=== PATIENT | female | born 1935 | race Caucasian/White ===

== ENCOUNTER 2016-10-02 13:14 | Emergency (ER) | payer MEDICAID, MEDICARE ==
[~2016-10-02] VITALS: Ht 152.4 cm; Wt 53.0 kg
[2016-10-02] MEDS ORDERED: KETOROLAC 30MG/ML VIAL IV STA (13:31)
[2016-10-02] MEDS ORDERED: ONDANSETRON HCL 4MG/2ML VIAL IV STA (13:31)
[2016-10-02] MEDS ORDERED: SODIUM CHLORIDE 0.9% 500 ML IV ONE (13:31)
[2016-10-02 14:12] LABS: BASOPHILS % 0.5 % (0.0-2.0); EOSINOPHILS % 0.1 % (0.0-5.0); HEMATOCRIT. 36.8 % (36.0-48.0); HEMOGLOBIN. 12.5 g/dL (12.0-16.0); LYMPHOCYTES % 11.2 % (20.0-50.0); MEAN CORPUSCULAR HEMOGLOBIN 30.1 pg (28.0-32.0); MEAN CORPUSCULAR VOLUME 88.5 fL (81.0-99.0); MEAN PLATELET VOLUME 9.5 fl (7.4-10.4); NEUTROPHILS % 84.2 % (40.0-76.0); PLATELET 178 x1000/uL (130-400); RED BLOOD CELL COUNT 4.16 mill/uL (4.2-5.4); RED CELL DISTRIBUTION WIDTH 13.6 % (11.6-14.6)
[2016-10-02 14:20] LABS: PROTHROMBIN TIME 10.1 sec
[2016-10-02 14:25] LABS: CARBON DIOXIDE 26 mEq/L (21-32); CHLORIDE 106 mEq/L (98-107)
[2016-10-02 14:30] LABS: TROPONIN I < 0.02 ng/mL (0.00-0.04)
[2016-10-02 16:21] LABS: GLUCOSE URINE NEGATIVE (NEGATIVE); KETONES URINE NEGATIVE (NEGATIVE); LEUKOCYTE ESTERASE URINE TRACE (NEGATIVE); NITRITE URINE NEGATIVE (NEGATIVE); OCCULT BLOOD URINE NEGATIVE (NEGATIVE); PH URINE 7.5 (4.5-8.0); PROTEIN URINE NEGATIVE (NEGATIVE); SPECIFIC GRAVITY URINE 1.014 (1.005-1.030)
[2016-10-02 16:24] LABS: CLARITY URINE HAZY (CLEAR); COLOR URINE YELLOW (YELLOW)
[2016-10-02] MEDS ORDERED: MORPHINE SULFATE 4 MG/ML CPJ (NOT FOR IM USE) IV ONE (17:00)
[2016-10-02 18:31] VITALS: BP 147/75
== END 2016-10-02 19:33 | disposition home or self-care (01) ==
LOC: ER 14:03
DX: R10.13 Epigastric pain (principal); R11.2 Nausea with vomiting, unspecified; I10 Essential (primary) hypertension; Z90.49 Acquired absence of other specified parts of digestive tract
CPT/HCPCS: 36415; 74176; 76705; 80053; 81001; 83690; 84484; 85025; 85610; 93005; 96361; 96374; 96375; 99285; J1885; J2270; J2405; J7030

== ENCOUNTER 2019-03-25 18:15 | Inpatient (IN) | payer MEDICARE, MEDICAID ==
[~2019-03-25] VITALS: Ht 144.8 cm; Wt 56.7 kg
[~2019-03-25 18:15] MED LIST: ALBU6.7H9 INH; ASPI-1393 MT; FURO20TA4 MT; LEVO25TA7 MT; METO25TA6 MT; OLMESARTAN PO; OMEP40CA34 PO; PRED10TA MT
[2019-03-25] MEDS ORDERED: SODIUM CHLORIDE 0.9% 1000ML BAG (SEPSIS BOLUS) IV ONE (22:00)
[2019-03-25 22:50] LABS: BASOPHILS % 0.4 % (0.0-2.0); EOSINOPHILS % 0.6 % (0.0-5.0); HEMATOCRIT. 40.4 % (36.0-48.0); HEMOGLOBIN. 14.2 g/dL (12.0-16.0); LYMPHOCYTES % 30.2 % (20.0-50.0); MEAN CORPUSCULAR HEMOGLOBIN 30.2 pg (28.0-32.0); MEAN CORPUSCULAR VOLUME 85.8 fL (81.0-99.0); MONOCYTES % 12.1 % (2.0-8.0); NEUTROPHILS % 56.7 % (40.0-76.0); PLATELET 221 x1000/uL (130-400); RED BLOOD CELL COUNT 4.71 mill/uL (4.2-5.4); RED CELL DISTRIBUTION WIDTH 13.2 % (11.6-14.6)
[2019-03-25 22:54] LABS: CHLORIDE 82 mEq/L (98-107)
[2019-03-25] MEDS ORDERED: ONDANSETRON HCL 4MG/2ML INJ IV ONE (23:15)
[2019-03-25] MEDS ORDERED: CEFTRIAXONE 1 G PREMIX 50 ML IV ONE (23:15)
[2019-03-25] MEDS ORDERED: POTASSIUM CHLORIDE INJ 40 MEQ in DEXT 5% WATER 250 ML IV ONE (23:15)
[2019-03-25] MEDS ORDERED: POTASSIUM CHLORIDE 20MEQ TABLET SR PO ONE (23:15)
[2019-03-26] MEDS ORDERED: MORPHINE SULFATE 2 MG/ML CPJ (NOT FOR IM USE) IV PRN
[2019-03-26] MEDS ORDERED: IPRATROPIUM/ALBUTEROL 0.5-3(2.5)MG/3ML NEB NEB PRN
[2019-03-26] MEDS ORDERED: CLONIDINE 0.1MG TABLET PO PRN
[2019-03-26] MEDS ORDERED: ONDANSETRON HCL 4MG/2ML INJ IV PRN
[2019-03-26] MEDS ORDERED: HYDROCODONE/ACETAMINOPHEN 5/325MG TABLET PO PRN
[2019-03-26] MEDS ORDERED: CEFTRIAXONE 1 G PREMIX 50 ML IV SCH (01:00)
[2019-03-26 01:01] LABS: CLARITY URINE CLEAR (CLEAR); COLOR URINE YELLOW (YELLOW); KETONES URINE NEGATIVE (NEGATIVE); LEUKOCYTE ESTERASE URINE TRACE (NEGATIVE); NITRITE URINE NEGATIVE (NEGATIVE); OCCULT BLOOD URINE NEGATIVE (NEGATIVE); PROTEIN URINE NEGATIVE (NEGATIVE); SPECIFIC GRAVITY URINE 1.006 (1.005-1.030); UROBILINOGEN URINE 0.2 E.U./dL (0.2-1.0)
[2019-03-26] MEDS: POTASSIUM CHLORIDE 20MEQ TABLET SR PO SCH ×4 (01:04→16:57)
[2019-03-26 09:30] VITALS: BP 126/54
[2019-03-26 09:46] VITALS: BP 126/54
[2019-03-26] MEDS ORDERED: ISOS20TA8 PO (10:20)
[2019-03-26] MEDS ORDERED: AMLO-375 PO (10:23)
[2019-03-26] MEDS ORDERED: METO5TAB69 PO (10:25)
[2019-03-26] MEDS: FUROSEMIDE 40MG/4ML VIAL IV SCH ×2 (10:45→16:56)
[2019-03-26] MEDS: ENOXAPARIN 30MG/0.3ML SYR SUBCUT SCH (10:46)
[2019-03-26 12:00] VITALS: BP 106/54
[2019-03-26] MEDS: LEVOTHYROXINE SODIUM 50MCG TABLET PO SCH (14:38)
[2019-03-26] MEDS: PREDNISONE 20MG TABLET PO SCH (14:38)
[2019-03-26 16:00] VITALS: BP 109/62
[2019-03-26 16:48] LABS: BASOPHILS % 0.6 % (0.0-2.0); EOSINOPHILS % 1.2 % (0.0-5.0); HEMATOCRIT. 39.2 % (36.0-48.0); HEMOGLOBIN. 13.5 g/dL (12.0-16.0); LYMPHOCYTES % 26.9 % (20.0-50.0); MEAN CORPUSCULAR HEMOGLOBIN 29.7 pg (28.0-32.0); MEAN CORPUSCULAR VOLUME 86.4 fL (81.0-99.0); MEAN PLATELET VOLUME 9.9 fl (7.4-10.4); MONOCYTES % 15.5 % (2.0-8.0); NEUTROPHILS % 55.8 % (40.0-76.0); PLATELET 225 x1000/uL (130-400); RED BLOOD CELL COUNT 4.53 mill/uL (4.2-5.4); RED CELL DISTRIBUTION WIDTH 13.2 % (11.6-14.6)
[2019-03-26 20:00] VITALS: BP 114/70
[2019-03-27] VITALS: BP 120/69
[2019-03-27] MEDS: CEFTRIAXONE 1 G PREMIX 50 ML IV SCH (01:23)
[2019-03-27 04:00] VITALS: BP 116/73
[2019-03-27 06:34] LABS: BASOPHILS % 0.2 % (0.0-2.0); HEMATOCRIT. 40.3 % (36.0-48.0); HEMOGLOBIN. 14.1 g/dL (12.0-16.0); LYMPHOCYTES % 30.8 % (20.0-50.0); MEAN CORPUSCULAR VOLUME 85.8 fL (81.0-99.0); MEAN PLATELET VOLUME 9.8 fl (7.4-10.4); MONOCYTES % 7.3 % (2.0-8.0); NEUTROPHILS % 61.7 % (40.0-76.0); PLATELET 220 x1000/uL (130-400); RED CELL DISTRIBUTION WIDTH 13.3 % (11.6-14.6)
[2019-03-27] MEDS: LEVOTHYROXINE SODIUM 50MCG TABLET PO SCH (06:38)
[2019-03-27 08:00] VITALS: BP 130/65
[2019-03-27] MEDS: ENOXAPARIN 30MG/0.3ML SYR SUBCUT SCH (09:05)
[2019-03-27] MEDS: POTASSIUM CHLORIDE 20MEQ TABLET SR PO SCH ×3 (09:05→17:34)
[2019-03-27] MEDS: PREDNISONE 20MG TABLET PO SCH (09:05)
[2019-03-27 12:00] VITALS: BP 124/64
[2019-03-27 16:00] VITALS: BP 114/69
[2019-03-27 20:00] VITALS: BP 126/76
[2019-03-28] VITALS: BP 123/81
[2019-03-28] MEDS: CEFTRIAXONE 1 G PREMIX 50 ML IV SCH (01:04)
[2019-03-28 04:00] VITALS: BP 116/68
[2019-03-28] MEDS: LEVOTHYROXINE SODIUM 50MCG TABLET PO SCH (06:58)
[2019-03-28 07:47] LABS: BASOPHILS % 0.4 % (0.0-2.0); EOSINOPHILS % 0.2 % (0.0-5.0); HEMATOCRIT. 38.1 % (36.0-48.0); HEMOGLOBIN. 12.9 g/dL (12.0-16.0); LYMPHOCYTES % 19.6 % (20.0-50.0); MEAN CORPUSCULAR HEMOGLOBIN 29.5 pg (28.0-32.0); MEAN CORPUSCULAR VOLUME 87.1 fL (81.0-99.0); MEAN PLATELET VOLUME 9.9 fl (7.4-10.4); MONOCYTES % 8.5 % (2.0-8.0); NEUTROPHILS % 71.3 % (40.0-76.0); PLATELET 233 x1000/uL (130-400); RED BLOOD CELL COUNT 4.37 mill/uL (4.2-5.4); RED CELL DISTRIBUTION WIDTH 13.8 % (11.6-14.6)
[2019-03-28 08:00] VITALS: BP 135/72
[2019-03-28] MEDS: ENOXAPARIN 30MG/0.3ML SYR SUBCUT SCH (08:51)
[2019-03-28] MEDS: POTASSIUM CHLORIDE 20MEQ TABLET SR PO SCH ×2 (08:51→13:00)
[2019-03-28] MEDS: PREDNISONE 20MG TABLET PO SCH (08:51)
[2019-03-28 12:00] VITALS: BP 130/64
[2019-03-28] MEDS ORDERED: LEVO500T2 MT (13:05)
[2019-03-28 14:14] VITALS: BP 130/64
== END 2019-03-28 17:48 | disposition home or self-care (01) | DRG 202 ==
LOC: ER 18:15 → ENRESERV 03-26 08:21 → 5WST 03-26 09:21
PROVIDERS: ADMIT Internal Medicine Nephrology; ATTEND Internal Medicine Nephrology
DX: J20.9 Acute bronchitis, unspecified (principal); N17.9 Acute kidney failure, unspecified; E87.1 Hypo-osmolality and hyponatremia; J44.0 Chronic obstructive pulmonary disease with (acute) lower respiratory infection; E87.6 Hypokalemia; E03.9 Hypothyroidism, unspecified; E11.22 Type 2 diabetes mellitus with diabetic chronic kidney disease; I25.10 Atherosclerotic heart disease of native coronary artery without angina pectoris; I50.9 Heart failure, unspecified; N18.9 Chronic kidney disease, unspecified; T50.2X5A Adverse effect of carbonic-anhydrase inhibitors, benzothiadiazides and other diuretics, initial encounter; Y92.89 Other specified places as the place of occurrence of the external cause; Z79.899 Other long term (current) drug therapy; Z79.82 Long term (current) use of aspirin
CPT/HCPCS: 36415; 71045; 80048; 81003; 83605; 83735; 93005; 93306; 99291; J0696; J1650; J1940; J2405; J3480; J7030; J7040; J7060; J7512

== ENCOUNTER 2019-06-06 18:50 | Emergency (ER) | payer MEDICARE, MEDICAID ==
[~2019-06-06] VITALS: Ht 149.9 cm; Wt 59.0 kg
[~2019-06-06 18:50] MED LIST changes: +AMLO-375 PO; -ASPI-1393 MT; +ASPI-1497 MT; +ISOS20TA8 PO; +LEVO500T2 MT; +OMEP40CA12 PO; -OMEP40CA34 PO; -PRED10TA MT
[2019-06-06 21:43] LABS: CLARITY URINE CLEAR (CLEAR); COLOR URINE YELLOW (YELLOW); KETONES URINE NEGATIVE (NEGATIVE); LEUKOCYTE ESTERASE URINE NEGATIVE (NEGATIVE); NITRITE URINE NEGATIVE (NEGATIVE); OCCULT BLOOD URINE NEGATIVE (NEGATIVE); PROTEIN URINE NEGATIVE (NEGATIVE); SPECIFIC GRAVITY URINE 1.006 (1.005-1.030); UROBILINOGEN URINE 0.2 E.U./dL (0.2-1.0)
[2019-06-06] MEDS ORDERED: ONDANSETRON HCL 4MG/2ML INJ IV STA (21:58)
[2019-06-06] MEDS ORDERED: KETOROLAC 30MG/ML VIAL IV STA (21:58)
[2019-06-06 22:49] LABS: BASOPHILS % 0.6 % (0.0-2.0); EOSINOPHILS % 1.5 % (0.0-5.0); HEMATOCRIT. 36.7 % (36.0-48.0); HEMOGLOBIN. 12.9 g/dL (12.0-16.0); LYMPHOCYTES % 30.6 % (20.0-50.0); MEAN CORPUSCULAR HEMOGLOBIN 30.4 pg (28.0-32.0); MEAN CORPUSCULAR VOLUME 86.5 fL (81.0-99.0); MEAN PLATELET VOLUME 9.4 fl (7.4-10.4); MONOCYTES % 10.1 % (2.0-8.0); NEUTROPHILS % 57.2 % (40.0-76.0); PLATELET 213 x1000/uL (130-400); RED BLOOD CELL COUNT 4.24 mill/uL (4.2-5.4); RED CELL DISTRIBUTION WIDTH 13.6 % (11.6-14.6)
[2019-06-06 22:50] LABS: CHLORIDE 94 mEq/L (98-107)
[2019-06-06 22:51] LABS: INR 0.9; PROTHROMBIN TIME 10.3 sec (9.6-11.0)
[2019-06-07] MEDS ORDERED: SODIUM CHLORIDE 0.9% 250 ML IV ONE (00:15)
[2019-06-07] MEDS ORDERED: SODIUM CHLORIDE 0.9% 1,000 ML IV ONE (02:15)
[2019-06-07 02:35] VITALS: BP 97/54
== END 2019-06-07 02:58 | disposition home or self-care (01) ==
LOC: ER 18:50
DX: R10.10 Upper abdominal pain, unspecified (principal); J44.9 Chronic obstructive pulmonary disease, unspecified; I10 Essential (primary) hypertension; R11.2 Nausea with vomiting, unspecified; Z79.82 Long term (current) use of aspirin; Z79.899 Other long term (current) drug therapy
CPT/HCPCS: 36415; 74176; 80053; 81003; 83690; 83880; 84484; 85025; 85610; 93005; 96361; 96374; 96375; 99285; J1885; J2405; J7030; J7050

== ENCOUNTER 2019-06-12 10:46 | Inpatient (IN) | payer MEDICARE, MEDICAID ==
[~2019-06-12] VITALS: Ht 144.8 cm; Wt 63.2 kg
[2019-06-12] MEDS ORDERED: ONDANSETRON HCL 4MG/2ML INJ IV STA (11:45)
[2019-06-12] MEDS ORDERED: SODIUM CHLORIDE 0.9% 1,000 ML IV ONE (11:45)
[2019-06-12 12:26] LABS: BASOPHILS % 0.6 % (0.0-2.0); EOSINOPHILS % 0.2 % (0.0-5.0); HEMATOCRIT. 38.5 % (36.0-48.0); HEMOGLOBIN. 13.4 g/dL (12.0-16.0); LYMPHOCYTES % 13.7 % (20.0-50.0); MEAN CORPUSCULAR HEMOGLOBIN 29.9 pg (28.0-32.0); MEAN CORPUSCULAR VOLUME 85.7 fL (81.0-99.0); MEAN PLATELET VOLUME 9.3 fl (7.4-10.4); MONOCYTES % 9.9 % (2.0-8.0); NEUTROPHILS % 75.6 % (40.0-76.0); PLATELET 253 x1000/uL (130-400); RED BLOOD CELL COUNT 4.49 mill/uL (4.2-5.4); RED CELL DISTRIBUTION WIDTH 13.3 % (11.6-14.6)
[2019-06-12 12:33] LABS: INR 1.1; PROTHROMBIN TIME 11.7 sec (9.6-11.0)
[2019-06-12 12:35] LABS: CHLORIDE 86 mEq/L (98-107)
[2019-06-12] MEDS: ONDANSETRON HCL 4MG/2ML INJ IV PRN (20:55)
[2019-06-12] MEDS ORDERED: MORPHINE SULFATE 2 MG/ML CPJ (NOT FOR IM USE) IV PRN ×2 (21:00→23:00)
[2019-06-12] MEDS ORDERED: HYDROCODONE/ACETAMINOPHEN 5/325MG TABLET PO PRN (23:00)
[2019-06-12] MEDS ORDERED: ONDANSETRON HCL 4MG/2ML INJ IV PRN (23:00)
[2019-06-12] MEDS ORDERED: IPRATROPIUM/ALBUTEROL 0.5-3(2.5)MG/3ML NEB NEB PRN (23:00)
[2019-06-12] MEDS ORDERED: CLONIDINE 0.1MG TABLET PO PRN (23:00)
[2019-06-12] MEDS ORDERED: DIPHENHYDRAMINE 50MG/ML VIAL IV PRN (23:00)
[2019-06-12 23:17] LABS: CLARITY URINE CLOUDY (CLEAR); COLOR URINE YELLOW (YELLOW); KETONES URINE TRACE (NEGATIVE); LEUKOCYTE ESTERASE URINE 3+ (NEGATIVE); NITRITE URINE NEGATIVE (NEGATIVE); OCCULT BLOOD URINE NEGATIVE (NEGATIVE); PH URINE 8.5 (4.5-8.0); PROTEIN URINE 1+ (NEGATIVE); SPECIFIC GRAVITY URINE 1.014 (1.005-1.030)
[2019-06-13] MEDS: SODIUM CHLORIDE 0.9% 1,000 ML IV SCH ×2 (00:15→13:54)
[2019-06-13 05:52] LABS: BASOPHILS % 0.4 % (0.0-2.0); EOSINOPHILS % 0.1 % (0.0-5.0); HEMATOCRIT. 35.1 % (36.0-48.0); HEMOGLOBIN. 12.1 g/dL (12.0-16.0); LYMPHOCYTES % 10.9 % (20.0-50.0); MEAN CORPUSCULAR HEMOGLOBIN 29.7 pg (28.0-32.0); MEAN CORPUSCULAR VOLUME 86.1 fL (81.0-99.0); MONOCYTES % 7.4 % (2.0-8.0); NEUTROPHILS % 81.2 % (40.0-76.0); PLATELET 222 x1000/uL (130-400); RED BLOOD CELL COUNT 4.08 mill/uL (4.2-5.4); RED CELL DISTRIBUTION WIDTH 13.1 % (11.6-14.6)
[2019-06-13] MEDS ORDERED: ASPIRIN 81MG EC TABLET PO SCH (09:00)
[2019-06-13] MEDS ORDERED: ISOSORBIDE DINITRATE 20MG TABLET PO SCH (09:00)
[2019-06-13] MEDS ORDERED: CEFTRIAXONE 1 G PREMIX 50 ML IV SCH (09:30)
[2019-06-13] MEDS: POTASSIUM CHLORIDE 20MEQ TABLET SR PO SCH ×2 (09:38→17:48)
[2019-06-13 10:30] VITALS: BP 130/59
[2019-06-13 10:35] VITALS: BP 130/59
[2019-06-13] MEDS ORDERED: POTASSIUM CHLORIDE INJ 40 MEQ in DEXT 5% WATER 250 ML IV ONE (11:00)
[2019-06-13] MEDS: LEVOTHYROXINE SODIUM 25MCG TABLET PO SCH (11:03)
[2019-06-13] MEDS: METOPROLOL TARTRATE 25MG TABLET PO SCH ×2 (11:04→17:48)
[2019-06-13] MEDS: ONDANSETRON HCL 4MG/2ML INJ IV PRN (11:04)
[2019-06-13] MEDS: ENOXAPARIN 40MG/0.4ML SYR SUBCUT SCH (11:05)
[2019-06-13] MEDS ORDERED: ROSU40TA PO (11:29)
[2019-06-13 12:00] VITALS: BP 131/78
[2019-06-13] MEDS: ALBUTEROL 6.7GM HFA INHALER INH SCH ×2 (14:10→21:44)
[2019-06-13 16:00] VITALS: BP 126/72
[2019-06-13] MEDS: GUAIFENESIN/CODEINE 200-20MG/10ML UDC PO PRN (16:24)
[2019-06-13] MEDS: CEFTRIAXONE 1 G PREMIX 50 ML IV SCH (17:50)
[2019-06-13 20:00] VITALS: BP 105/57
[2019-06-14] VITALS: BP 108/58
[2019-06-14] MEDS: GUAIFENESIN/CODEINE 200-20MG/10ML UDC PO PRN ×2 (00:08→21:36)
[2019-06-14] MEDS: SODIUM CHLORIDE 0.9% 1,000 ML IV SCH (02:09)
[2019-06-14 04:00] VITALS: BP 106/58
[2019-06-14] MEDS: LEVOTHYROXINE SODIUM 25MCG TABLET PO SCH (06:45)
[2019-06-14 07:05] LABS: BASOPHILS % 0.3 % (0.0-2.0); HEMATOCRIT. 33.5 % (36.0-48.0); HEMOGLOBIN. 11.6 g/dL (12.0-16.0); LYMPHOCYTES % 15.4 % (20.0-50.0); MEAN CORPUSCULAR HEMOGLOBIN 29.7 pg (28.0-32.0); MEAN CORPUSCULAR VOLUME 85.7 fL (81.0-99.0); MEAN PLATELET VOLUME 9.5 fl (7.4-10.4); MONOCYTES % 10.9 % (2.0-8.0); NEUTROPHILS % 72.4 % (40.0-76.0); PLATELET 206 x1000/uL (130-400); RED BLOOD CELL COUNT 3.91 mill/uL (4.2-5.4); RED CELL DISTRIBUTION WIDTH 13.3 % (11.6-14.6)
[2019-06-14 08:00] VITALS: BP 114/56
[2019-06-14] MEDS: POTASSIUM CHLORIDE 20MEQ TABLET SR PO SCH ×3 (08:29→16:38)
[2019-06-14] MEDS: METOPROLOL TARTRATE 25MG TABLET PO SCH ×3 (08:30→16:38)
[2019-06-14] MEDS: ENOXAPARIN 40MG/0.4ML SYR SUBCUT SCH (08:30)
[2019-06-14] MEDS ORDERED: EZ-HD SUSPENSION(BARIUM SULFATE 340GM) PO ONE (09:47)
[2019-06-14] MEDS ORDERED: BARIUM SULFATE 176 GM SUSP.RECON ONE (09:47)
[2019-06-14 12:00] VITALS: BP 118/66
[2019-06-14] MEDS ORDERED: BISACODYL 10MG SUPP PR NR (12:00)
[2019-06-14 16:00] VITALS: BP 119/65
[2019-06-14] MEDS: CEFTRIAXONE 1 G PREMIX 50 ML IV SCH (16:38)
[2019-06-14] MEDS: LACTULOSE 20G/30ML UDC PO SCH ×2 (18:06→21:36)
[2019-06-14 18:38] LABS: PARTIAL THROMBOPLASTIN TIME 31.2 sec (23.4-31.0); PROTHROMBIN TIME 10.9 sec (9.6-11.0)
[2019-06-14 20:00] VITALS: BP 110/67
[2019-06-14] MEDS: ALBUTEROL 6.7GM HFA INHALER INH SCH (21:36)
[2019-06-14] MEDS: ATORVASTATIN CALCIUM 20MG TABLET PO SCH (21:36)
[2019-06-14] MEDS ORDERED: LACTULOSE 20G/30ML UDC PO SCH (22:00)
[2019-06-15] VITALS (38 sets, daily range): BP systolic 65–149; BP diastolic 32–79
[2019-06-15] MEDS: LACTULOSE 20G/30ML UDC PO SCH ×3 (05:57→21:50)
[2019-06-15] MEDS: LEVOTHYROXINE SODIUM 25MCG TABLET PO SCH (06:20)
[2019-06-15 06:27] LABS: BASOPHILS % 0.4 % (0.0-2.0); EOSINOPHILS % 3.1 % (0.0-5.0); HEMATOCRIT. 34.3 % (36.0-48.0); HEMOGLOBIN. 11.9 g/dL (12.0-16.0); LYMPHOCYTES % 24.6 % (20.0-50.0); MEAN CORPUSCULAR HEMOGLOBIN 29.9 pg (28.0-32.0); MEAN CORPUSCULAR VOLUME 86.3 fL (81.0-99.0); MEAN PLATELET VOLUME 9.3 fl (7.4-10.4); MONOCYTES % 14.2 % (2.0-8.0); NEUTROPHILS % 57.7 % (40.0-76.0); PLATELET 230 x1000/uL (130-400); RED BLOOD CELL COUNT 3.98 mill/uL (4.2-5.4); RED CELL DISTRIBUTION WIDTH 13.3 % (11.6-14.6)
[2019-06-15] MEDS: METOPROLOL TARTRATE 25MG TABLET PO SCH (08:01)
[2019-06-15] MEDS: POTASSIUM CHLORIDE 20MEQ TABLET SR PO SCH (08:01)
[2019-06-15] MEDS ORDERED: FENTANYL CITRATE/PF 50MCG/ML 2ML VIAL ONE (11:28)
[2019-06-15] MEDS ORDERED: MIDAZOLAM HCL 5 MG/5 ML VIAL ONE (11:28)
[2019-06-15] MEDS ORDERED: SIMETHICONE 40 MG/0.6 ML 30ML ONE (11:28)
[2019-06-15] MEDS ORDERED: MIDAZOLAM HCL 2 MG/2 ML VIAL IV PRN (11:32)
[2019-06-15] MEDS ORDERED: FENTANYL CITRATE/PF 50MCG/ML 2ML VIAL IV PRN (11:33)
[2019-06-15] MEDS ORDERED: METOCLOPRAMIDE HCL 5MG TABLET PO SCH (12:20)
[2019-06-15] MEDS: OMEPRAZOLE 20MG CAPSULE EXTENDED RELEASE PO SCH ×2 (12:45→21:00)
[2019-06-15] MEDS ORDERED: LEVETIRACETAM 500 MG in SODIUM CHLORIDE 0.9% 100 ML IV SCH (13:15)
[2019-06-15] MEDS: DEXT 5%/LACTATED RINGERS 1,000 ML IV SCH (14:01)
[2019-06-15] MEDS: CEFTRIAXONE 1 G PREMIX 50 ML IV SCH (15:51)
[2019-06-15] MEDS: NICARDIPINE 100 MG in SODIUM CHLORIDE 0.9% 60 ML IV PRN (16:57)
[2019-06-15] MEDS: METOCLOPRAMIDE HCL 10MG/2ML VIAL IV SCH (18:29)
[2019-06-15] MEDS: DEXAMETHASONE 4MG/ML 1ML VIAL IV SCH (18:30)
[2019-06-15] MEDS ORDERED: METOPROLOL TARTRATE 5MG/5ML VIAL IV SCH (21:00)
[2019-06-15] MEDS: ATORVASTATIN CALCIUM 20MG TABLET PO SCH (21:00)
[2019-06-15] MEDS: LEVETIRACETAM 500MG PREMIX 100 ML IV SCH (21:49)
[2019-06-16] VITALS (82 sets, daily range): BP systolic 86–157; BP diastolic 22–146
[2019-06-16] MEDS: DEXAMETHASONE 4MG/ML 1ML VIAL IV SCH ×4 (00:21→17:59)
[2019-06-16] MEDS: METOCLOPRAMIDE HCL 10MG/2ML VIAL IV SCH ×4 (00:22→17:59)
[2019-06-16] MEDS: ALBUTEROL (0.083%) 2.5MG/3ML NEB HHN SCH ×3 (01:58→20:10)
[2019-06-16 06:00] LABS: BASOPHILS % 0.2 % (0.0-2.0); HEMOGLOBIN. 12.6 g/dL (12.0-16.0); LYMPHOCYTES % 11.3 % (20.0-50.0); MEAN CORPUSCULAR HEMOGLOBIN 29.7 pg (28.0-32.0); MEAN CORPUSCULAR VOLUME 87.2 fL (81.0-99.0); MEAN PLATELET VOLUME 9.3 fl (7.4-10.4); MONOCYTES % 1.5 % (2.0-8.0); PLATELET 264 x1000/uL (130-400); RED BLOOD CELL COUNT 4.25 mill/uL (4.2-5.4); RED CELL DISTRIBUTION WIDTH 13.4 % (11.6-14.6)
[2019-06-16] MEDS: LACTULOSE 20G/30ML UDC PO SCH ×3 (06:00→21:08)
[2019-06-16] MEDS: OMEPRAZOLE 20MG CAPSULE EXTENDED RELEASE PO SCH ×2 (06:20→20:50)
[2019-06-16] MEDS: LEVOTHYROXINE SODIUM 25MCG TABLET PO SCH (06:20)
[2019-06-16] MEDS: DEXT 5%/LACTATED RINGERS 1,000 ML IV SCH (07:00)
[2019-06-16] MEDS: METOPROLOL TARTRATE 25MG TABLET PO SCH ×2 (08:09→18:00)
[2019-06-16] MEDS: LEVETIRACETAM 500MG PREMIX 100 ML IV SCH ×2 (08:10→20:51)
[2019-06-16] MEDS: ENOXAPARIN 30MG/0.3ML SYR SUBCUT SCH (09:46)
[2019-06-16] MEDS: CEFTRIAXONE 1 G PREMIX 50 ML IV SCH (16:47)
[2019-06-16] MEDS: ATORVASTATIN CALCIUM 20MG TABLET PO SCH (20:50)
[2019-06-17] VITALS (31 sets, daily range): BP systolic 101–146; BP diastolic 52–124
[2019-06-17] MEDS: ALBUTEROL (0.083%) 2.5MG/3ML NEB HHN SCH ×3 (02:45→13:45)
[2019-06-17] MEDS: DEXAMETHASONE 4MG/ML 1ML VIAL IV SCH ×2 (03:47→05:56)
[2019-06-17] MEDS: METOCLOPRAMIDE HCL 10MG/2ML VIAL IV SCH ×4 (03:47→17:00)
[2019-06-17 05:23] LABS: HEMATOCRIT. 33.5 % (36.0-48.0); HEMOGLOBIN. 11.4 g/dL (12.0-16.0); MEAN CORPUSCULAR HEMOGLOBIN 29.4 pg (28.0-32.0); MEAN PLATELET VOLUME 8.8 fl (7.4-10.4); PLATELET 267 x1000/uL (130-400); RED BLOOD CELL COUNT 3.89 mill/uL (4.2-5.4); RED CELL DISTRIBUTION WIDTH 13.3 % (11.6-14.6)
[2019-06-17 05:35] LABS: CHLORIDE 106 mEq/L (98-107)
[2019-06-17] MEDS: LACTULOSE 20G/30ML UDC PO SCH ×3 (05:52→20:22)
[2019-06-17] MEDS: LEVOTHYROXINE SODIUM 25MCG TABLET PO SCH (05:56)
[2019-06-17] MEDS: OMEPRAZOLE 20MG CAPSULE EXTENDED RELEASE PO SCH ×2 (05:56→20:21)
[2019-06-17] MEDS: DEXT 5%/LACTATED RINGERS 1,000 ML IV SCH (05:57)
[2019-06-17 08:04] LABS: PLATELET ESTIMATE NORMAL
[2019-06-17] MEDS: LEVETIRACETAM 500MG PREMIX 100 ML IV SCH ×2 (08:32→20:22)
[2019-06-17] MEDS: METOPROLOL TARTRATE 25MG TABLET PO SCH ×2 (08:33→16:55)
[2019-06-17] MEDS: ENOXAPARIN 30MG/0.3ML SYR SUBCUT SCH (08:33)
[2019-06-17] MEDS ORDERED: POTASSIUM CHLORIDE 20MEQ/PACKET PO SCH (10:00)
[2019-06-17] MEDS ORDERED: FUROSEMIDE 40MG/4ML VIAL IVP SCH (10:45)
[2019-06-17] MEDS ORDERED: METO10TA3 MT (14:06)
[2019-06-17] MEDS: CEFTRIAXONE 1 G PREMIX 50 ML IV SCH (16:55)
[2019-06-17] MEDS: ATORVASTATIN CALCIUM 20MG TABLET PO SCH (20:21)
[2019-06-17] MEDS: GUAIFENESIN 600MG ER TABLET PO SCH (20:21)
[2019-06-17] MEDS: BUDESONIDE 0.5MG/2ML NEB HHN SCH (21:00)
[2019-06-18] VITALS (24 sets, daily range): BP systolic 91–165; BP diastolic 37–81
[2019-06-18] MEDS: METOCLOPRAMIDE HCL 10MG/2ML VIAL IV SCH ×4 (00:17→17:17)
[2019-06-18] MEDS: ALBUTEROL (0.083%) 2.5MG/3ML NEB HHN SCH ×3 (00:49→11:50)
[2019-06-18] MEDS: NICARDIPINE 100 MG in SODIUM CHLORIDE 0.9% 60 ML IV PRN (04:53)
[2019-06-18] MEDS: LACTULOSE 20G/30ML UDC PO SCH ×2 (05:25→13:19)
[2019-06-18] MEDS: LEVOTHYROXINE SODIUM 25MCG TABLET PO SCH (05:30)
[2019-06-18] MEDS: OMEPRAZOLE 20MG CAPSULE EXTENDED RELEASE PO SCH (05:31)
[2019-06-18 05:44] LABS: BASOPHILS % 0.3 % (0.0-2.0); HEMATOCRIT. 36.1 % (36.0-48.0); HEMOGLOBIN. 12.4 g/dL (12.0-16.0); LYMPHOCYTES % 10.3 % (20.0-50.0); MEAN CORPUSCULAR HEMOGLOBIN 29.8 pg (28.0-32.0); MEAN CORPUSCULAR VOLUME 86.5 fL (81.0-99.0); MEAN PLATELET VOLUME 9.3 fl (7.4-10.4); MONOCYTES % 6.6 % (2.0-8.0); NEUTROPHILS % 82.8 % (40.0-76.0); PLATELET 276 x1000/uL (130-400); RED BLOOD CELL COUNT 4.17 mill/uL (4.2-5.4); RED CELL DISTRIBUTION WIDTH 13.4 % (11.6-14.6)
[2019-06-18 06:53] LABS: CHLORIDE 106 mEq/L (98-107)
[2019-06-18] MEDS ORDERED: FUROSEMIDE 20MG/2ML VIAL IVP NR (08:45)
[2019-06-18] MEDS ORDERED: DEXAMETHASONE 4MG/ML 1ML VIAL IV SCH (09:00)
[2019-06-18] MEDS: ENOXAPARIN 30MG/0.3ML SYR SUBCUT SCH (09:08)
[2019-06-18] MEDS: LEVETIRACETAM 500MG PREMIX 100 ML IV SCH (09:08)
[2019-06-18] MEDS: METOPROLOL TARTRATE 25MG TABLET PO SCH ×2 (09:08→17:00)
[2019-06-18] MEDS: GUAIFENESIN 600MG ER TABLET PO SCH (09:16)
[2019-06-18] MEDS: BUDESONIDE 0.5MG/2ML NEB HHN SCH (11:51)
[2019-06-18] MEDS: CEFTRIAXONE 1 G PREMIX 50 ML IV SCH (16:05)
== END 2019-06-18 20:06 | disposition home or self-care (01) | DRG 682 ==
LOC: ER 13:52 → 6WST 15:07 → EDBEDREQ 15:13 → ENRESERV 06-13 07:59 → MICUNO 06-15 13:01 → MICUSO 06-15 19:36 → 7WST 06-18 09:50
PROVIDERS: ADMIT Internal Medicine Nephrology; ATTEND Internal Medicine Nephrology
PROC: 0DB78ZX Excision of Stomach, Pylorus, Via Natural or Artificial Opening Endoscopic, Diagnostic (ICD-10-PCS; principal; 2019-06-15)
DX: N17.0 Acute kidney failure with tubular necrosis (principal); I50.33 Acute on chronic diastolic (congestive) heart failure; J96.20 Acute and chronic respiratory failure, unspecified whether with hypoxia or hypercapnia; N39.0 Urinary tract infection, site not specified; I13.0 Hypertensive heart and chronic kidney disease with heart failure and stage 1 through stage 4 chronic kidney disease, or unspecified chronic kidney disease; E87.1 Hypo-osmolality and hyponatremia; J98.11 Atelectasis; K29.60 Other gastritis without bleeding; D32.9 Benign neoplasm of meninges, unspecified; J84.10 Pulmonary fibrosis, unspecified; E78.5 Hyperlipidemia, unspecified; E83.41 Hypermagnesemia; E87.6 Hypokalemia; K59.00 Constipation, unspecified; N18.9 Chronic kidney disease, unspecified; J44.9 Chronic obstructive pulmonary disease, unspecified; E86.0 Dehydration; K44.9 Diaphragmatic hernia without obstruction or gangrene; D63.8 Anemia in other chronic diseases classified elsewhere; E78.00 Pure hypercholesterolemia, unspecified; Z96.641 Presence of right artificial hip joint; I25.10 Atherosclerotic heart disease of native coronary artery without angina pectoris; K57.30 Diverticulosis of large intestine without perforation or abscess without bleeding; K21.0 Gastro-esophageal reflux disease with esophagitis; Z77.22 Contact with and (suspected) exposure to environmental tobacco smoke (acute) (chronic); Z90.49 Acquired absence of other specified parts of digestive tract; Z86.011 Personal history of benign neoplasm of the brain; Z99.81 Dependence on supplemental oxygen; Z79.899 Other long term (current) drug therapy
CPT/HCPCS: 36415; 70551; 71045; 74021; 74176; 74220; 80048; 80053; 80061; 81003; 83036; 83605; 83735; 83880; 84484; 85025; 86677; 88305; 88312; 88313; 93005; 93970; 94640; 97162; 97166; 99285; J0696; J1100; J1650; J1940; J1953; J2250; J2270; J2405; J2765; J3010; J3480; J3490; J7030; J7050; J7060; J7121; J7626; J8597

== ENCOUNTER → 2019-12-05 | Outpatient (CLI) | payer MEDICARE, MEDICAID ==
[~2019-12-05] MED LIST changes: -AMLO-375 PO; -LEVO500T2 MT; +METO10TA3 MT; -OLMESARTAN PO; +ROSU40TA PO
[2019-12-05 13:23] LABS: BG BASE EXCESS -3.3 mmol/L (-2.0-2.0); BG CARBOXYHEMOGLOBIN 0.3 % (0.5-1.5); BG DEOXYHEMOGLOBIN 4.5 % (0.0-5.0); BG FRACTION INSPIRED OXYGEN 21; BG HCO3 ACT 19.7 mmol/L (22.0-26.0); BG METHEMOGLOBIN 0.1 % (0.0-1.5); BG OXYGEN SATURATION 95.5 % (92.0-98.5); BG OXYHEMOGLOBIN 95.1 % (94.0-97.0); BG PCO2 29.8 mmHg (35.0-45.0); BG PH 7.439 (7.350-7.450); BG PO2 75.2 mmHg (75.0-100.0); BG SAMPLE SITE RIGHT RADIAL; BG TOTAL HEMOGLOBIN 12.8 g/dL (12.0-18.0); BG VENT MODE ROOM AIR
== END | disposition home or self-care (01) ==
LOC: PF 12:45
PROVIDERS: ATTEND Internal Medicine Pulmonary Disease
DX: J44.9 Chronic obstructive pulmonary disease, unspecified (principal); R09.02 Hypoxemia
CPT/HCPCS: 36600; 82375; 82805

== ENCOUNTER → 2020-01-27 | Outpatient (CLI) | payer MEDICARE, MEDICAID | END | disposition home or self-care (01) | LOC: LAB 10:04 | PROVIDERS: ATTEND Internal Medicine Pulmonary Disease | DX: Z20.828 Contact with and (suspected) exposure to other viral communicable diseases (principal) | CPT/HCPCS: C9803; U0003 ==

== ENCOUNTER → 2020-02-22 | Outpatient (CLI) | payer MEDICARE, MEDICAID | END | disposition home or self-care (01) | LOC: LAB 12:01 | PROVIDERS: ATTEND Internal Medicine Pulmonary Disease | DX: Z20.828 Contact with and (suspected) exposure to other viral communicable diseases (principal) | CPT/HCPCS: C9803; U0003 ==